=== PATIENT | female | born 1955 | race Caucasian/White ===

== ENCOUNTER 2017-05-09 12:55 | Day surgery (SDC) | payer BC ==
[~2017-05-09] VITALS: Ht 157.5 cm; Wt 88.5 kg
[~2017-05-09 12:55] MED LIST: ARMOUR THYROID60 MG PO; ARMOUR THYROID90 MG PO; DIAZEPAM5 MG PO; DOK250 MG PO; FLUOXETINE HCL20 MG PO; GABAPENTIN300 MG PO; GLIPIZIDE5 MG PO; HYDROMORPHONE HC4 MG PO; LIPITOR20 MG PO; OXYCODONE HCL5 MG PO; PROPRANOLOL HCL20 MG PO; PROPRANOLOL HCL60 M1 PO; SUDOGEST30 MG PO; VICTOZA 3-0.6 MG/0.1 SUB-Q; XARELTO10 MG PO
--- NOTE | 2017-05-09 15:40 | NUR ---
05/09/17 1540 Lisa Cabral report from malini chahal.
--- NOTE | 2017-05-13 07:49 | OR ---
[facility] [address] [place], [place] [address] Signed DATE OF OPERATION: 05/09/2017 SURGEON: Kayla Palacios MD PREOPERATIVE DIAGNOSES: 1. Upper gastrointestinal symptoms including excessive burping and mild dysphagia. 2. Left lower abdominal pain and episodic diarrhea. POSTOPERATIVE DIAGNOSES: 1. Normal esophagus and GE junction. 2. Mild antral gastritis without ulceration. 3. Sigmoid diverticulosis. 4. Small polyp of rectum (excised). PROCEDURE: 1. Esophagogastroduodenoscopy with biopsy. 2. Total colonoscopy to the cecum with cold morcellation excision of polyp of rectum and biopsies of cecum and rectum. ANESTHESIA: Propofol infusion. BURNING SUPERVISOR: Florecita Garcia CRNA. INDICATION: This 62-year-old white woman has numerous medical problems and is currently a patient of Dr. Hubert Hernandez, previously Dr. Jose Alberto Cervantes. She is referred for consideration of upper endoscopy and colonoscopy on the basis of chronic episodic left lower abdominal pain and diarrhea as well as episodes of dysphagia and excessive burping and bloating type symptoms. Notably, she has undergone a cholecystectomy by me in 2001. Sometime later, undergoing ERCP papillotomy with complication, ultimately recovering. She understands risks of bleeding, infection, and perforation related to upper endoscopy and colonoscopy and wished to proceed. FINDINGS: On upper endoscopy, she had a normal flap valve and esophagus entirely. There was mild antral gastritis. Remaining exam was normal. CESIA test was negative 30 minutes post procedure. Electronically Signed By: KAYLA PALACIOS MD 05/13/17 0749 PATIENT NAME: CHARU STROUD OPERATIVE REPORT DATE OF : 53 PHYSICIAN: KAYLA PALACIOS MD REPORT #: [id number] REPORT IS CONFIDENTIAL AND NOT TO BE RELEASED WITHOUT AUTHORIZATION [facility] [address] [place], [place] [address] Signed On colonoscopy, the prep was quite good. Complete colonoscopy was undertaken to the cecum without question. Intubation of the ileum was attempted, but not successful. She had numerous diverticula of the sigmoid colon. There was a small flat polyp of the rectum, which was excised. The remaining colon was normal otherwise. DESCRIPTION OF PROCEDURE: The patient was brought to the endoscopy suite and given topical Hurricaine spray hypopharyngeal anesthesia and placed in lateral decubitus position. She was given intravenous sedation to the point of slurred speech and nystagmus with full cardiopulmonary monitoring by the oracle hrms developer using propofol infusional technique. A bite block was placed. An Olympus video upper endoscope was passed into the hypopharynx. There was plethoric soft tissue around the upper airway, but no sign of cord issues otherwise. The scope was advanced to the esophagus throughout its length, it was entirely normal. Scope was passed to the stomach, which was insufflated with air. There was mild antral gastritis. Pylorus was normal. Rugal folds were normal. Scope was passed through the pylorus into the duodenum. There may be mild duodenitis. Biopsies were taken of third and bulbar portions of the duodenum. The scope was withdrawn to the stomach. Biopsies were taken of the antrum for both CESIA and pathologic testing. Retroflexed view was undertaken showing impressively intact flap valve with no sign of hiatal hernia whatsoever. The scope was straightened, withdrawn, and biopsies taken of the distal esophagus, though the mucosa looked reasonably normal. Careful withdrawal of scope showed no other abnormalities. Midesophageal biopsy was obtained as well. Scope was removed. Plans were then made for colonoscopy. Digital rectal examination was performed, which was normal. An Olympus video colonoscope was passed in the rectum and manipulated throughout the colon. Numerous diverticula were seen in the sigmoid and left colon. Scope was ultimately passed to the cecum. Ileocecal valve was normal. Attempts to intubate it were unsuccessful despite great attempts to do so. Biopsy was taken of the cecum to assess for occult colitis. The scope was carefully withdrawn and from that point, there was no sign of abnormality until the left colon and sigmoid, where diverticula were once again seen. Within the rectum, there was a small flat polyp. This was excised with cold morcellation technique. Biopsies were obtained of the rectum to assess for occult colitis as well given her diarrhea. Retroflexed view was normal other than a few hemorrhoidal changes. The scope was straightened, withdrawn, and removed. The patient was taken to recovery room in good condition. CONCLUDING DIAGNOSIS: May have antral gastritis, possibly accounting for symptoms of eructation and dyspeptic symptoms otherwise. Additionally, had numerous diverticula of sigmoid and left colon, Electronically Signed By: KAYLA PALACIOS MD 05/13/17 0749 PATIENT NAME: CHARU STROUD OPERATIVE REPORT DATE OF : 53 PHYSICIAN: KAYLA PALACIOS MD REPORT #: [id number] REPORT IS CONFIDENTIAL AND NOT TO BE RELEASED WITHOUT AUTHORIZATION [address] [address] Signed likely accounting for left lower abdominal pain. PLAN: We will prescribe Prilosec 20 mg daily. We will also recommend Citrucel 1 tablespoon daily. We will see her back in 4-6 weeks and assess her progress and review her pathology reports. MD WALTER Torres/NIMCOL /[id number] cc: MD Hubert Troy MD Electronically Signed By: KAYLA PALACIOS MD 05/13/17 0749 PATIENT NAME: CHARU STROUD OPERATIVE REPORT DATE OF : 53 PHYSICIAN: KAYLA PALACIOS MD REPORT #: [id number] REPORT IS CONFIDENTIAL AND NOT TO BE RELEASED WITHOUT AUTHORIZATION
== END 2017-05-09 16:30 | disposition home or self-care (01) ==
LOC: DS 12:55 → OPS 12:55
PROVIDERS: Surgery
PROC: 0DB68ZX Excision of Stomach, Via Natural or Artificial Opening Endoscopic, Diagnostic (ICD-10-PCS; 2017-05-09)
PROC: 0DB28ZX Excision of Middle Esophagus, Via Natural or Artificial Opening Endoscopic, Diagnostic (ICD-10-PCS; 2017-05-09)
PROC: 0DB38ZX Excision of Lower Esophagus, Via Natural or Artificial Opening Endoscopic, Diagnostic (ICD-10-PCS; 2017-05-09)
PROC: 0DBP8ZX Excision of Rectum, Via Natural or Artificial Opening Endoscopic, Diagnostic (ICD-10-PCS; principal; 2017-05-09 15:30)
PROC: 0DB98ZX Excision of Duodenum, Via Natural or Artificial Opening Endoscopic, Diagnostic (ICD-10-PCS; 2017-05-09 15:30)
DX: K62.1 Rectal polyp (principal); K20.9 Esophagitis, unspecified; K29.50 Unspecified chronic gastritis without bleeding; K57.30 Diverticulosis of large intestine without perforation or abscess without bleeding; I47.1 Supraventricular tachycardia; E03.9 Hypothyroidism, unspecified; G47.30 Sleep apnea, unspecified; E78.5 Hyperlipidemia, unspecified; E11.9 Type 2 diabetes mellitus without complications; F32.9 Major depressive disorder, single episode, unspecified; Z88.1 Allergy status to other antibiotic agents; Z88.8 Allergy status to other drugs, medicaments and biological substances; Z96.653 Presence of artificial knee joint, bilateral; Z90.710 Acquired absence of both cervix and uterus; Z90.49 Acquired absence of other specified parts of digestive tract; Z79.899 Other long term (current) drug therapy
CPT/HCPCS: 00740; J0694; J2250; J2704; J3010; J7120

== ENCOUNTER 2022-09-02 05:57 | Day surgery (SDC) | payer OTHER, MEDICARE ==
[~2022-09-02] VITALS: Ht 157.5 cm; Wt 90.9 kg
[~2022-09-02 05:57] MED LIST changes: +MOUNJARO7.5 MG/0.5; +SIMVASTATIN5 MG PO
[2022-09-02] MEDS ORDERED: CYMBALTA20 MG PO (06:30)
--- NOTE | 2022-09-02 08:33 | NUR ---
09/02/22 0833 Lainey Ba 0830- PT ARRIVES TO PACU AWAKE AND TALKING. PT REPORTS NO PAIN OR NAUSEA. RESP EVEN AND UNLABORED. OXYGEN SAT MID 90'S ON RA. 0832- CBG 183 TAKEN BY ALBERT GRIFFITH RN.
[2022-09-02] MEDS ORDERED: IBUPROFEN600 MG PO (08:47)
[2022-09-02] MEDS ORDERED: OXYCODON-ACETA1 EAC2 PO (08:47)
[2022-09-02] MEDS ORDERED: ACETAMINOPHEN500 MG PO (08:48)
--- NOTE | 2022-09-02 10:33 | NUR ---
PT ALERT, ORIENTED AND SUPPORTED BY HR . PT IS SOMEWHAT ANXIOUS, BUT HAS GREAT CONFIDENCE IN STAFF AND DR PALACIOS. ALL QUESTIONS ASKED ANSWERED. PT REQUESTED PRAYER, WILL REMAIN FOR DC.
--- NOTE | 2022-09-02 14:33 | OR ---
[facility] [address] [place], [place] [address] Signed DATE OF OPERATION: 09/02/2022 SURGEON: Kayla Palacios MD PREOPERATIVE DIAGNOSIS: Right carpal tunnel syndrome. POSTOPERATIVE DIAGNOSIS: Right carpal tunnel syndrome. PROCEDURE: Right carpal tunnel release. ANESTHESIA: Right [place] block, Sebastian Mendoza CRNA and local 0.25% Marcaine with epinephrine 3 mL total. INDICATION: This 67-year-old white woman is a patient Dr. Ying and is bothered by bilateral carpal tunnel syndrome. Her symptoms are worse on her dominant (right) hand. 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 She does have underlying diabetes mellitus and hypothyroidism. She has had trial of wrist splint and so forth but is markedly bothered by rather typical symptoms of median neuropathy including numbness and tingling of the thumb, index and middle finger, worse at night and that despite wrist splinting. She is admitted at this time to undergo right carpal tunnel release. She understands the risk of bleeding, infection, motor nerve branch injury, and failure to improve her symptoms. Understand that, she wished to proceed. FINDINGS: The transverse carpal ligament was easily identified and divided distalward to the palmar fascia and proximally to the distal wrist crease. A small incision was maintained. The underlying median nerve was somewhat hyperemic. There was no tumor associated with it. The underlying tendons were normal. DESCRIPTION OF PROCEDURE: The patient was brought to the operating room and given a right [place] block type anesthetic. Preoperative antibiotic Ancef was given. Sequential compression device stockings were used. Good exsanguination of the hand and wrist up to the forearm had been undertaken by the enterer. The tourniquet was placed below the elbow to minimize anesthetic burden. Preparation of the hand was undertaken with chlorhexidine Electronically Signed By: KAYLA PALACIOS MD 09/02/22 1433 PATIENT NAME: CHARU STROUD OPERATIVE REPORT DATE OF : 53 REPORT #: [id number] PHYSICIAN: KAYLA PALACIOS MD PCP: GRIFFIN WRIGHT MD REPORT IS CONFIDENTIAL AND NOT TO BE RELEASED WITHOUT AUTHORIZATION [facility] [address] [place], [place] [address] Signed solution and draped sterilely. A rolled blue towel was placed behind the wrist and a lead finger retractor used to provide good exposure. The thenar eminence and its associated crease was distinguished from surrounding tissue and a small incision was made proximally on the wrist (palm). Dissection was carried through the skin and subcutaneous tissue. There is some discomfort and therefore 2 mL of 0.25% Marcaine with epinephrine was injected locally. Retraction was undertaken with providing good exposure to the transverse carpal ligament. This was divided directly with a 15 blade with all due care. Minimal amount of needlepoint electrocautery was used for muscle fibers on the volar and radial side. Once the ligament was incised, a hemostat was placed beneath it and additional transection of the transverse carpal ligament taken distalward to the palmar fascia. Hemostat was replaced proximally beneath the ligament, protecting the underlying median nerve. It was divided with 15 blade more fully and ultimately with tenotomy scissors to the level of the distal wrist crease. The median nerve appeared hyperemic, but with no hourglass deformity or anything of that sort. The nerve was retracted medially, showing the underlying carpal canal without sign of tumor or other problem. Minimal cautery was used to muscle fibers that had not yet been divided. Irrigation was undertaken. An additional mL of Marcaine was injected in the subcutaneous tissue. The skin was then closed with interrupted 3-0 nylon suture. Xeroform gauze was applied as was a rolled sponge and a Flexicon rolled gauze. A cock-up Velcro wrist splint was placed on the volar aspect of the wrist and it was then secured taking special care to avoid pressure points on the thumb. Pantera wrap was secured circumferentially and pressure applied to the palm. The tourniquet was let down at 28 minutes and pressure applied to the site until hyperemia returned to the fingers and began to recede. She was transported to the recovery room in good condition having suffered no complications. Sponge, needle, and instrument counts were reported as correct x3. MD WALTER Torres/MODL /[id number] cc: Alecia Ying MD Electronically Signed By: KAYLA PALACIOS MD 09/02/22 1433 PATIENT NAME: CHARU STROUD OPERATIVE REPORT DATE OF : 53 REPORT #: [id number] PHYSICIAN: KAYLA PALACIOS MD PCP: GRIFFIN WRIGHT MD REPORT IS CONFIDENTIAL AND NOT TO BE RELEASED WITHOUT AUTHORIZATION [facility] [address] [place], [place] [address] Signed Copies: ~ Electronically Signed By: KAYLA PALACIOS MD 09/02/22 1433 PATIENT NAME: CHARU STROUD OPERATIVE REPORT DATE OF : 53 REPORT #: [id number] PHYSICIAN: KAYLA PALACIOS MD PCP: GRIFFIN WRIGHT MD REPORT IS CONFIDENTIAL AND NOT TO BE RELEASED WITHOUT AUTHORIZATION
== END 2022-09-02 09:25 | disposition home or self-care (01) ==
LOC: DS 05:57
PROVIDERS: ATTEND Surgery
PROC: 01N50ZZ Release Median Nerve, Open Approach (ICD-10-PCS; principal; 2022-09-02 07:30)
DX: G56.03 Carpal tunnel syndrome, bilateral upper limbs (principal); E11.9 Type 2 diabetes mellitus without complications; E03.9 Hypothyroidism, unspecified; G47.30 Sleep apnea, unspecified; K21.9 Gastro-esophageal reflux disease without esophagitis; Z79.84 Long term (current) use of oral hypoglycemic drugs; Z79.899 Other long term (current) drug therapy
CPT/HCPCS: J0690; J2001; J2405; J2704; J7121

== ENCOUNTER 2022-10-19 07:23 | Day surgery (SDC) | payer OTHER, MEDICARE ==
[~2022-10-19] VITALS: Ht 157.5 cm; Wt 90.9 kg
[~2022-10-19 07:23] MED LIST changes: +ACETAMINOPHEN500 MG PO; +CYMBALTA20 MG PO; +IBUPROFEN600 MG PO; +OXYCODON-ACETA1 EAC2 PO
[2022-10-19 07:59] VITALS: BP 123/89
--- NOTE | 2022-10-19 09:51 | NUR ---
10/19/22 0951 Hetal Murphy 0950-PATIENT ARRIVED TO PACU ON RA RR EVEN. PATIENT REACTIVE TO VERBAL STIMULI OPENING EYES DENIES PAIN OR NAUSEA. PATIENT ABLE TO WIGGLE FINGERS REPORTS "NUMBNESS" DRESSING INTACT. LEFT ARM ON PILLOW. SR
[2022-10-19] MEDS ORDERED: IBUPROFEN600 MG PO (10:11)
[2022-10-19] MEDS ORDERED: ACETAMINOPHEN500 MG PO (10:12)
[2022-10-19] MEDS ORDERED: PERCOCET 7.5-31 EACH PO (10:13)
[2022-10-19 10:32] VITALS: BP 129/81
--- NOTE | 2022-10-22 15:24 | OR ---
[facility] [address] [place], [place] [address] Signed DATE OF OPERATION: SURGEON: Kayla Palacios MD PREOPERATIVE DIAGNOSIS: Left carpal tunnel syndrome. POSTOPERATIVE DIAGNOSIS: Left carpal tunnel syndrome. PROCEDURE: Left carpal tunnel release. ANESTHESIA: Left [place] block (Matthieu Omalley CRNA and local 5 mL of 0.25% Marcaine with epinephrine). INDICATION: This 67-year-old white woman is a patient of Dr. Wright. She underwent right carpal tunnel release by me on September 02, 2022. She presented with bilateral carpal tunnel syndrome previously and was thoroughly evaluated including neurologic nerve conduction testing in [place]. She has done well with right carpal tunnel release, is now to undergo left-sided carpal tunnel release. She understands the risks of bleeding, infection, motor or sensory nerve deficit following operation, and of course recurrence. Understanding all risks she wished to proceed. FINDINGS: Good exsanguination of the hand was noted. The transverse carpal ligament was easily identified and transected protecting the underlying median nerve. Transection was complete to the palmar fascia and proximally to the distal wrist crease under direct visualization. The underlying nerve had mild hyperemia. No sign of tumor or other problem. PROCEDURE IN DETAIL: The patient was brought to the operating room, given a left sided [place] block. Preoperative antibiotic Ancef was given. The left hand and arm were prepared with a chlorhexidine solution having elevated the left arm tourniquet to 250 mm pressure. A blue towel was rolled behind the wrist and using palmar retraction the left palm was well identified. Thenar and hypothenar creases were well identified. An incision was made in the proximal palm. Dissection carried through the subcutaneous tissue. Additional local anesthetic of Marcaine 0.25% with epinephrine was injected. There was some sensitivity noted. Small veins were secured with needlepoint Electronically Signed By: KAYLA PALACIOS MD 10/22/22 1524 PATIENT NAME: CHARU STROUD OPERATIVE REPORT DATE OF : 53 REPORT #: [id number] PHYSICIAN: KAYLA PALACIOS MD PCP: GRIFFIN WRIGHT MD REPORT IS CONFIDENTIAL AND NOT TO BE RELEASED WITHOUT AUTHORIZATION [facility] [address] [place], [place] [address] Signed electrocautery. The thickened subcutaneous fat of the palm was divided and the transverse ligament identified. This was incised with a 15 blade partially allowing for insinuation of a small hemostat beneath the transverse ligament. This was dissected down more fully completely onto the palmar fascia. Hemostat was replaced more proximally and direct division was undertaken there as well. Thenar muscle that was had been incorporated in the ligament was carefully divided and secured with needlepoint electrocautery as well. The underlying nerve was examined. There was no sign of tumor or other problem. More proximal transection of the carpal ligament was undertaken to the distal wrist crease. Direct examination showed no sign of other abnormality other than mild hyperemia of the nerve. Hemostasis was found to be good and small muscle fibers again secured with electrocautery as necessary. Minimal cautery was used as noted. Wound was then closed with interrupted 2-0 nylon suture. A Xeroform gauze was applied as was some plain gauze. Ultimately, a Flexicon and a cock-up wrist splint and a 4 inch Pantera wrap. Pressure was applied to the wound as the tourniquet was taken down. Once hyperemia of the fingers began to subside additional pressure was taken off the operative site. She was transferred to recovery room in good condition. There was essentially no blood loss. There were no complications. MD WALTER Torres/NIMCOL /[id number] cc: Dr. Wright Copies: ~ Electronically Signed By: KAYLA PALACIOS MD 10/22/22 1524 PATIENT NAME: CHARU STROUD OPERATIVE REPORT DATE OF : 53 REPORT #: [id number] PHYSICIAN: KAYLA PALACIOS MD PCP: GRIFFIN WRIGHT MD REPORT IS CONFIDENTIAL AND NOT TO BE RELEASED WITHOUT AUTHORIZATION
== END 2022-10-19 10:50 | disposition home or self-care (01) ==
LOC: DS 07:23
PROVIDERS: ATTEND Surgery
PROC: 01N50ZZ Release Median Nerve, Open Approach (ICD-10-PCS; principal; 2022-10-19 09:00)
DX: G56.02 Carpal tunnel syndrome, left upper limb (principal)
CPT/HCPCS: 01810; J0131; J0690; J2001; J2704; J7121

== ENCOUNTER 2024-11-01 12:02 | Day surgery (SDC) | payer MEDICARE, OTHER ==
[~2024-11-01] VITALS: Ht 154.9 cm; Wt 84.5 kg
[~2024-11-01 12:02] MED LIST changes: +CEFAZOLIN SODIUM 2 GM/20 ML SYR IV SCH; +DULOXETINE HCL60 MG PO; +IBLOOD GLUCOSE TEST STRIP 1 EA TEST VI PRN; +LACTATED RINGER'S 1,000 ML IV SCH; +LIDOCAINE HCL 1% 5 ML SDV INJ ONE; +MIDAZOLAM HCL 5 MG/5 ML VIAL IV PRN; +MOUNJARO10 MG/0.5 SQ; +PERCOCET 7.5-31 EACH PO; +QUETIAPINE FUMA50 MG PO; +TRULICITY0.75 MG/0. SQ; +VENTOLIN HFA18 GM INH; +fentaNYL citrate 100 MCG/2 ML VIAL IV PRN
[2024-11-01 12:19] VITALS: BP 136/67
[2024-11-01] MEDS ORDERED: fentaNYL citrate 100 MCG/2 ML VIAL ONE (12:30)
[2024-11-01] MEDS ORDERED: MIDAZOLAM HCL 5 MG/5 ML VIAL ONE (12:31)
--- NOTE | 2024-11-01 13:52 | NUR ---
11/01/24 1352 Florecita Cintron 1325-PT ARRIVES TO PACU VIA STRETCHER, RESTING ON LT SIDE, PT AWAKE BUT DROWSY, AWAKENS EASILY TO VOICE, DENIES PAIN OR NAUSEA, VSS ON 3L VIA NC, PT ENCOURAGED TO PASS GAS. 1330-PT TITRATED TO RA, VS REMAIN STABLE. PT DENIES PAIN OR NAUSEA. 1340-PT ROLLED ONTO BACK AND NOW SITTING UP IN BED SIPPING ON WATER.
[2024-11-01 14:01] VITALS: BP 133/70
--- NOTE | 2024-11-01 15:22 | OR ---
[facility] [address] [place], [place] [address] Signed DATE OF OPERATION: 11/01/2024 SURGEON: Kayla Palacios MD PREOPERATIVE DIAGNOSIS: Serrated adenoma at cecum, October 2023. POSTOPERATIVE DIAGNOSES: 1. Sigmoid diverticulosis, no evidence of recurrent or persistent polyp of cecum. 2. Mild proctitis. PROCEDURE: Total colonoscopy to cecum with biopsy of rectum. ANESTHESIA: Intravenous sedation fentanyl 200 mcg and Versed 10 mg. INDICATION: This 69-year-old woman is a patient of Dr. Wright. She underwent colonoscopy by me on October 17, 2023, was found to have a small polyp of the cecum, which was excised, confirming a serrated adenoma without dysplasia. There was also a hyperplastic polyp of the rectum. She does have diverticulosis. Given the serrated adenoma histology and despite no family history that is known of colon cancer, I have recommended short-term followup to assure complete excision of the polyp and so on. The risk of bleeding, infection, perforation related to colonoscopy was reviewed with her. She understands, wished to proceed. FINDINGS: The prep was good. Complete colonoscopy was undertaken of cecum with full intubation of cecum. There was no evidence of recurrent or persistent polyp of the cecum or in the right colon in any way. There were numerous diverticula of the sigmoid and left colon. She had mild proctitis and biopsies obtained, but most likely this represents an effective bowel prep rather than true proctitis proper. DESCRIPTION OF PROCEDURE: The patient was brought to the endoscopy suite and placed in lateral decubitus position, given intravenous sedation to the point of slurred speech and nystagmus. Digital rectal examination was normal. An Olympus video colonoscope was passed in the rectum and manipulated throughout the Electronically Signed By: KAYLA PALACIOS MD 11/01/24 1522 PATIENT NAME: CHARU STROUD OPERATIVE REPORT DATE OF : 53 REPORT #: [id number] PHYSICIAN: KAYLA PALACIOS MD PCP: GRIFFIN WRIGHT MD REPORT IS CONFIDENTIAL AND NOT TO BE RELEASED WITHOUT AUTHORIZATION [facility] [address] [place], [place] [address] Signed colon. Numerous diverticula were noted in the sigmoid and left colon. Scope was ultimately passed to the cecum. Full intubation of the cecum was accomplished. The appendiceal orifice was easily visualized. Ileocecal valve was normal as well. Irrigation was undertaken. Close inspection of the entire surface of the cecum and right colon showed no sign of persistent or recurrent polyp. Scope was withdrawn from that area and upon withdrawal, no other abnormalities were noted other than the diverticula and mild proctitis and biopsies obtained of the rectum on the basis of those findings. Retroflexed view was otherwise normal. The scope was removed. The patient was taken to the recovery room in good condition. CONCLUDING DIAGNOSES: 1. Mild proctitis. No evidence of recurrent or persistent serrated adenoma. 2. Diverticulosis. PLAN: Recommend repeat colonoscopy in 10 years, sooner if symptoms should develop. We would recommend high-fiber diet as well. She will return to the ongoing care of Dr. Wright. MD WALTER Torres/GABBIE /[id number] cc: Dr. Wright Copies: ~ Electronically Signed By: KAYLA PALACIOS MD 11/01/24 1522 PATIENT NAME: CHARU STROUD OPERATIVE REPORT DATE OF : 53 REPORT #: [id number] PHYSICIAN: KAYLA PALACIOS MD PCP: GRIFFIN WRIGHT MD REPORT IS CONFIDENTIAL AND NOT TO BE RELEASED WITHOUT AUTHORIZATION
--- NOTE | 2024-11-02 16:59 | PATH ---
[facility] [address] [facility] [place] [address] Signed SPECIMEN(S): A RECTUM BIOPSY SPECIMEN SOURCE: A. RECTUM BIOPSY CLINICAL HISTORY: History of colon polyps, diverticulosis, mild proctitis FINAL PATHOLOGIC DIAGNOSIS: Rectum biopsy: - Benign colonic mucosa with slight hyperplastic features (one fragment). JVR:clv MICROSCOPIC EXAMINATION: Histologic sections of all submitted blocks are examined by light microscopy. These findings, together with the gross examination, support the pathologic diagnosis. GROSS DESCRIPTION: The specimen, labeled and designated "Lui rectum biopsy," is received in formalin and consists of two vernon soft tissue fragments, ranging from 0.3-0.5 cm. Entirely submitted in (A1). VB (under the direct supervision of a pathologist) The Gross Description was prepared using a voice recognition system. The report was reviewed for accuracy; however, sound-alike word errors, addition and/or deletions may occur. If there is any question about this report, please contact Client Services. PERFORMING LABORATORY: Technical component was performed by [facility], [address] [place] [id number] (CLIA# [id number]). Professional interpretation was performed by [facility], [address] [place] [id number] (CLIA#: [id number]). Diagnostician: Ori Wheeler MD Pathologist Electronically Signed 11/02/2024 Copies: PATIENT NAME: CHARU STROUD PATHOLOGY DATE OF : 53 REPORT #: [id number] PHYSICIAN: NABEEL PATHOLOGY PCP: GRIFFIN WRIGHT MD REPORT IS CONFIDENTIAL AND NOT TO BE RELEASED WITHOUT AUTHORIZATION [address] [address] Signed ~ PATIENT NAME: CHARU STROUD PATHOLOGY DATE OF : 53 REPORT #: [id number] PHYSICIAN: NABEEL PATHOLOGY PCP: GRIFFIN WRIGHT MD REPORT IS CONFIDENTIAL AND NOT TO BE RELEASED WITHOUT AUTHORIZATION
== END 2024-11-01 14:15 | disposition home or self-care (01) ==
LOC: DS 12:02
PROVIDERS: ATTEND Surgery
PROC: 0DBP8ZX Excision of Rectum, Via Natural or Artificial Opening Endoscopic, Diagnostic (ICD-10-PCS; principal; 2024-11-01 13:00)
DX: Z09 Encounter for follow-up examination after completed treatment for conditions other than malignant neoplasm (principal); K57.30 Diverticulosis of large intestine without perforation or abscess without bleeding; K62.89 Other specified diseases of anus and rectum; K21.00 Gastro-esophageal reflux disease with esophagitis, without bleeding; E03.9 Hypothyroidism, unspecified; E11.9 Type 2 diabetes mellitus without complications; G47.30 Sleep apnea, unspecified; Z86.0100 Personal history of colon polyps, unspecified; Z88.8 Allergy status to other drugs, medicaments and biological substances; Z79.899 Other long term (current) drug therapy
CPT/HCPCS: 99153; G0500; J0690; J2250; J3010; J7121